=== PATIENT | male | born 1945 | race Two or more races ===

== ENCOUNTER 2024-03-13 08:41 | Emergency (ER) | payer BC, OTHER ==
[~2024-03-13] VITALS: Ht 182.9 cm; Wt 100.0 kg
[~2024-03-13 08:41] MED LIST: CARV3.1240 PO; DOXA2TAB PO; ENAL1TAB46 PO; ERGO2000 PO; LEVO25TA6 PO; METF-372 PO; MONT-8 PO
--- NOTE | 2024-03-13 09:10 | ED.PDOC ---
CPR-HPI HPI Comments 79-year-old male with unknown PMHx brought in by EMS s/p CPR with ROSC. Patient was found unresponsive in his vehicle by after arriving home around 0817. Bystander CPR was initiated by family. EMS arrival at 0824. ROSC was obtained at 0835 per EMS after 2 rounds of CPR and epi with 1 shock. Patient arrived blinking and moving extremities. 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 Allergies: Coded Allergies: UNOBTAINABLE (Unverified , 03/13/24) S/P CPR Home Meds Active Scripts Metformin Hydrochloride (Metformin Hcl) 1,000 Mg Tab, 1 TAB PO BID, #60 TAB Prov:OMID DE LA FUENTE MD 07/19/18 Reported Medications Carvedilol (Carvedilol) 3.125 Mg Tab, 1 TAB PO BID, TAB 07/19/18 Ergocalciferol (VITAMIN D2) 2,000 Unit Tab, 66172 UNIT PO, TAB 07/19/18 Montelukast Sodium (MONTELUKAST SODIUM) 10 Mg Tab, 1 TAB PO DAILY, TAB 07/19/18 Enalapril Maleate (VASOTEC TABLET) 10 Mg Tb, 1 TAB PO DAILY, TAB 07/19/18 Levothyroxine Sodium (Levothyroxine Sodium) 25 Mcg Tab, 0.5 TAB PO, TAB 07/19/18 Doxazosin Mesylate (Doxazosin) 2 Mg Tab, 2 MG PO BID, TAB 07/19/18 Information Source: Emergency Med Personnel Mode of Arrival: EMS Timing: Minutes Duration: Down time prior EMS: (7 minutes) Onset: Witnessed Available Hx: Unknown Inital rhythm: V-fib Treatment: CPR, Defibrillation, Epinephrine Response: Sustained return of pulse Associated signs and symptoms: Unknown Past Medical History PAST MEDICAL HISTORY: DM, High Lipids, HTN Surgical History: PTCA Family History Family History: Unknown Social History Smoker: Non-Smoker Alcohol: Denies ETOH Use Drugs: Denies Drug Use Constitutional: denies: chills, diaphoresis, fatigue, fever, malaise, sweats, weakness, others EENTM: denies: blurred vision, double vision, ear bleeding, ear discharge, ear drainage, ear pain, ear ringing, eye pain, eye redness, hearing loss, mouth pain, mouth swelling, nasal discharge, nose bleeding, nose congestion, nose pain, photophobia, tearing, throat pain, throat swelling, voice changes, others Respiratory: denies: cough, hemoptysis, orthopnea, SOB at rest, shortness of breath, SOB with excertion, stridor, wheezing, others Cardiovascular: denies: chest pain, dizzy spells, diaphoresis, Dyspnea on exertion, edema, irregular heart beat, left arm pain, lightheadedness, palpitations, PND, syncope, others Gastrointestinal: denies: abdomen distended, abdominal pain, blood streaked bowels, constipated, diarrhea, dysphagia, difficulty swallowing, hematemesis, melena, nausea, poor appetite, poor fluid intake, rectal bleeding, rectal pain, vomiting, others Genitourinary: denies: burning, dysuria, flank pain, frequency, hematuria, incontinence, penile discharge, penile sore, pain, testicle pain, testicle swelling, urgency, others Neurological: denies: dizziness, fainting, headache, left sided numbness, left sided weakness, numbness, paresthesia, pre-existing deficit, right sided numbness, right sided weakness, seizure, speech problems, tingling, tremors, weakness, others Musculoskeletal: denies: back pain, gout, joint pain, joint swelling, muscle pain, muscle stiffness, neck pain, others Integumetry: denies: bruises, change in color, change in hair/nails, dryness, laceration, lesions, lumps, rash, wounds, others Allergic/Immunocompromised: denies: Difficulty Healing, Frequent Infections, Hives, Itching, others Hematologic/Lymphatic: denies: anemia, blood clots, easy bleeding, easy bruising, swollen glands, others Endocrine: denies: excessive hunger, excessive sweating, excessive thirst, excessive urination, flushing, intolerance to cold, intolerance to heat, unexplained weight gain, unexplained weight loss, others Psychiatric: denies: anxiety, bipolar disorder, depression, hopeless, panic disorder, schizophrenia, sleepless, suicidal, others Unable to Obtain due to: Medical Urgency All Other Systems: Reviewed and Negative Physical Exam General Appearance: Severe Distress HEENT: NOT DONE Neck: NOT DONE Respiratory: NOT DONE Cardiovascular: NOT DONE Breast Exam: Deferred Gastrointestinal: NOT DONE Genitalia: Deferred Pelvic: Deferred Rectal: Deferred Extremities: NOT DONE Neurologic: NOT DONE Cerebellar Function: NOT DONE Reflexes: NOT DONE Skin: NOT DONE Lymphatic: No Adenopathy Was a procedure done? Was a procedure done?: Yes Sedation Sedation?: Yes Informed consent obtained: No Sedation start time: 08:44 Sedation end time: 08:45 Sedation total time: 1 minute Intubation Indication: Respiratory Insufficiency Prep: Preoxygenation Pretreated with: Sedation Medicated with: Other (20mg Etomidate; 100mg Rocuronium) Intubation Approach: Orotracheal Intubation size: cm (24) Informed consent obtained: No Risks/benefits/alt described: No Notes S/P Cardiac Arrest Differential Dx CPR Differential Diagnosis: Cardiopulmonary arrest, Cardiogenic shock, Dysrhythmia, Electrolyte disorder, Myocardial Infarction, Respiratory Failure X-Ray, Labs, Meds, VS Vital Signs Date Time Temp Pulse Resp B/P (MAP) Pulse Ox O2 Delivery O2 Flow Rate FiO2 03/13/24 10:02 94 03/13/24 10:00 90 16 178/86 (116) 100 03/13/24 10:00 94 16 178/86 (116) 9 50 03/13/24 09:55 176/90 03/13/24 09:47 69/44 03/13/24 09:45 85 16 169/88 (115) 100 03/13/24 09:30 65 16 135/68 (90) 100 03/13/24 09:15 72 16 148/77 (100) 100 03/13/24 09:13 147/83 03/13/24 09:00 84 16 105/59 (74) 98 03/13/24 08:50 55 16 79/43 (55) 98 100 03/13/24 08:45 98.4 75 15 105/51 (69) 98 98.4 03/13/24 08:44 73 03/13/24 08:41 98.4 110 14 122/71 (88) 93 Lab Test 03/13/24 10:00 03/13/24 09:49 03/13/24 08:50 03/13/24 08:45 Range/Units Troponin I High Sensitivity 97 *H 9 </=54 ng/L Blood Gas Specimen Type Arterial Blood Gas Sample Site Right radial Blood Gas Patient Temperature 37.0 Arterial Blood Date Drawn [id number] Arterial Blood pH 7.327 L 7.350-7.450 Arterial Blood Partial Pressure CO2 37.9 35.0-48.0 mmHg Arterial Blood Partial Pressure O2 318.2 *H 83.0-108.0 mmHg Arterial Blood HCO3 19.4 L 21.0-28.0 mmol/L Arterial Blood Oxygen Saturation 99.3 H 94.0-98.0 % Arterial Blood Base Excess -5.9 L -2.0-3.0 mmol/L Arterial Blood Oxyhemoglobin 98.6 H 94.0-98.0 % Arterial Blood Carboxyhemoglobin 0.2 L 0.5-1.5 % Arterial Blood Methemoglobin 0.5 0.0-1.5 % Michael Test Modified Blood Gas Total Hemoglobin 15.80 13.5-17.5 g/dL Blood Gas Set Respiration Rate 16.0 Blood Gas Modality Vent - ac FiO2 % 100.0 Blood Gas Tidal Volume 500.0 Blood Gas PEEP or CPAP 8.0 Blood Gas Critical Value Read Back Yes Blood Gas Notified Whom Dr castillo Blood Gas Notified Time [id number] Blood Gas Notified By Recycler brigid duke Urine Color Pending Urine Clarity Pending Urine pH Pending Urine Specific [place] Pending Urine Protein Pending Urine Ketones Pending Urine Blood Pending Urine Nitrite Pending Urine Bilirubin Pending Urine Urobilinogen Pending Urine Leukocyte Esterase Pending Urine RBC Pending Urine WBC Pending Urine Squamous Epithelial Cells Pending Urine Bacteria Pending Urine Glucose Pending White Blood Count 11.0 H 4.4-10.8 10^3/uL Red Blood Count 4.57 4.5-5.90 10^6/uL Hemoglobin 14.8 13.5-17.5 g/dL Hematocrit 44.3 41.0-53.0 % Mean Corpuscular Volume 96.9 80.0-100.0 fL Mean Corpuscular Hemoglobin 32.4 H 28.0-32.0 pg Mean Corpuscular Hemoglobin Concent 33.4 32.0-36.0 g/dL Red Cell Distribution Width 14.3 11.8-14.3 % Platelet Count 179 140-450 10^3/uL Mean Platelet Volume 7.9 6.9-10.8 fL Neutrophils (%) (Auto) 52.5 37.0-80.0 % Lymphocytes (%) (Auto) 42.1 10.0-50.0 % Monocytes (%) (Auto) 3.8 0.0-12.0 % Eosinophils (%) (Auto) 1.2 0.0-7.0 % Basophils (%) (Auto) 0.4 0.0-2.0 % Neutrophils # (Auto) 5.8 1.6-8.6 10 ^3/uL Lymphocytes # (Auto) 4.7 0.4-5.4 10 ^3/uL Monocytes # (Auto) 0.4 0-1.3 10 ^3/uL Eosinophils # (Auto) 0.1 0-0.8 10 ^3/uL Basophils # (Auto) 0 0-0.2 10 ^3/uL Nucleated Red Blood Cells 0.1 % Sodium Level 140 136-145 mmol/L Potassium Level 4.0 3.5-5.1 mmol/L Chloride Level 107 98-107 mmol/L Carbon Dioxide Level 22 20-31 mmol/L Anion Gap 11 5-15 Blood Urea Nitrogen 18 9-23 mg/dL Creatinine 1.16 0.700-1.30 mg/dL Glomerular Filtration Rate Calc 64 >90 mL/min BUN/Creatinine Ratio 15.5 10.0-20.0 Serum Glucose 189 H 74-106 mg/dL Calcium Level 9.1 8.7-10.4 mg/dL Total Bilirubin 1.1 H 0.2-1.0 mg/dL Aspartate Amino Transferase (AST) 161 H 13-40 U/L Alanine Aminotransferase (ALT) 105 H 7-40 U/L Alkaline Phosphatase 127 H 46-116 U/L Total Protein 6.3 5.7-8.2 g/dL Albumin 4.0 3.2-4.8 g/dL Current Medications Medications (Trade) Dose Ordered Sig/Rios Route Start Time Stop Time Status Last Admin Etomidate 20 mg ONCE ONCE IV 03/13/24 09:15 03/13/24 09:16 DC 03/13/24 09:12 Rocuronium [place] 100 mg ONCE ONCE IV 03/13/24 09:15 03/13/24 09:16 DC 03/13/24 09:13 Midazolam HCl 50 ml @ 1 mls/hr Q24H IV 03/13/24 09:15 03/13/24 09:55 Norepinephrine Bitartrate 250 ml @ 3.75 mls/hr Q24H IV 03/13/24 09:15 03/13/24 09:47 Time of 1ST Reevaluation: 09:10 Reevaluation 1ST: Unchanged Patient Education/Counseling: Pt Unresponsive Family Education/Counseling: No Family Present Departure 1 Departure Time of Disposition: 11:10 (Patient's presented after cardiac arrest. Patient was intubated central line placed started on pressors. We will admit patient to the ICU for further management.) Impression: Primary Impression: Cardiac arrest Additional Impression: Hypotension Qualified Codes: I95.9 - Hypotension, unspecified Disposition: ADMITTED INPATIENT Admit to: ICU Condition: Critical Critical Care Note Critical Care Time?: Yes Critical care comment: Authorized and Performed by: Charleen Shipley MD Total critical care time: Approximately 119 minutes Due to a high probability of clinically significant, life threatening deterioration, the patient required my highest level of preparedness to intervene emergently and I personally spent this critical care time directly and personally managing the patient. This critical care time included obtaining a history; examining the patient; pulse oximetry; ordering and review of studies; arranging urgent treatment with development of a management plan; evaluation of patient's response to treatment; frequent reassessment; and, discussions with other providers. This critical care time was performed to assess and manage the high probability of imminent, life-threatening deterioration that could result in multi-organ failure. It was exclusive of separately billable procedures and treating other patients and teaching time. Please see my other sections and the rest of the note for further information on patient assessment and treatment. Heart Score Heart Score: Heart Score Response (Comments) Value History N/A 0 EKG N/A 0 Age N/A 0 Risk Factors N/A 0 Troponin N/A 0 Total 0 Stability Stability form required: No I personally scribed for CHARLEEN SHIPLEY MD ([email or web address]) on 03/13/24 at 09:10. Electronically submitted by Matthew Villagran ([email or web address]). CHARLEEN SHIPLEY MD Mar 13, 2024 09:10
[2024-03-13] MEDS: ETOMIDATE (2MG/ML) 20ML VIAL IV ONE (09:12)
[2024-03-13] MEDS: ROCURONIUM 10MG/ML 10ML VIAL IV ONE (09:13)
[2024-03-13 09:32] LABS: Basophils # (auto) 0 10 ^3/uL (0-0.2); Basophils % (auto) 0.4 % (0.0-2.0); Eosinophils # (auto) 0.1 10 ^3/uL (0-0.8); Eosinophils % (auto) 1.2 % (0.0-7.0); Hematocrit 44.3 % (41.0-53.0); Hemoglobin 14.8 g/dL (13.5-17.5); Lymphocytes # (auto) 4.7 10 ^3/uL (0.4-5.4); Lymphocytes % (auto) 42.1 % (10.0-50.0); Mean Corpuscular Hemoglobin 32.4 pg (28.0-32.0); Mean Corpuscular Hgb Conc. 33.4 g/dL (32.0-36.0); Mean Corpuscular Volume 96.9 fL (80.0-100.0); Monocytes # (auto) 0.4 10 ^3/uL (0-1.3); Monocytes % (auto) 3.8 % (0.0-12.0); Neutrophils # (auto) 5.8 10 ^3/uL (1.6-8.6); Neutrophils % (auto) 52.5 % (37.0-80.0); Nucleated Red Blood Cells % 0.1 %; Platelet Count (auto) 179 10^3/uL (140-450); Red Blood Cells 4.57 10^6/uL (4.5-5.90); Red Cell Distribution Width 14.3 % (11.8-14.3)
[2024-03-13 09:39] LABS: Urine Bacteria None Seen /hpf (None Seen)
[2024-03-13] MEDS: NOREPINEPHRINE 8 MG/250ML KIT 250 ML IV SCH (09:47)
[2024-03-13 09:50] LABS: Alanine Aminotransferase 105 U/L (7-40); Alkaline Phosphatase 127 U/L (46-116); Anion Gap 11 (5-15); Aspartate Aminotransferase 161 U/L (13-40); BUN/Creatinine Ratio 15.5 (10.0-20.0); Bilirubin, Total 1.1 mg/dL (0.2-1.0); Blood Urea Nitrogen 18 mg/dL (9-23); Calcium 9.1 mg/dL (8.7-10.4); Carbon Dioxide 22 mmol/L (20-31); Chloride 107 mmol/L (98-107); Glucose 189 mg/dL (74-106); Sodium 140 mmol/L (136-145); Total Protein 6.3 g/dL (5.7-8.2)
[2024-03-13 09:55] LABS: Base Excess -5.9 mmol/L (-2.0-3.0)
[2024-03-13] MEDS: MIDAZOLAM DRIP 50 mg/50mL 50 ML IV SCH (09:55)
--- NOTE | 2024-03-13 09:55 | DVH ---
CHEST RADIOGRAPH Indication:S/P ETT,NGT/OGT,AND CENTRAL LINE PLACEMENT Technique: Single frontal view of the chest was obtained COMPARISON: None FINDINGS: Lines and Tubes: Tube and enteric catheter in satisfactory position. Right central venous catheter in satisfactory position overlying the superior vena cava. Lungs: Hazy right upper lobe airspace opacities. Pleura: No effusion. No pneumothorax. Cardiomediastinal contours: Unremarkable Bones: Unremarkable IMPRESSION: Lines and tubes in satisfactory position.
[2024-03-13] MEDS: IOHEXOL 300 MG/ML 100ML BOTTLE IJ ONE (10:31)
--- NOTE | 2024-03-13 11:15 | DVH ---
EXAM: CT HEAD WITHOUT CONTRAST INDICATION: post arrest TECHNIQUE: CT of the head without intravenous contrast. Radiation dose : Head: CT Dose: CTDI volume is 78.01 mGy. Dose-length product is 2982.81 mGy*cm The dose indicators for CT are the volume computed tomography (CT) dose index (CTDIvol) and the dose length product (DLP), and are measured in units of mGy and mGy-cm, respectively. These indicators are not patient dose, but values generated from the CT scanner acquisition factors. The report includes radiation exposure data for exposures received during this examination. COMPARISON: None FINDINGS: There is no evidence of acute intracranial hemorrhage, extra-axial collection, mass effect, midline s hift, herniation or hydrocephalus. The ventricles, sulci and cisterns are age appropriate. The chandler-white differentiation is intact. Patchy periventricular and subcortical white matter hypoattenuation is nonspecific but may be related to small vessel ischemic disease. There is mild opacification of the ethmoid and sphenoid sinuses. The surrounding soft tissues and osseous structures are unremarkable. An endotracheal tube is partial ly imaged IMPRESSION: 1. No acute intracranial abnormality. Radiation optimization: All CT scans at this facility use at least one of these dose optimization ama hniques: Automated exposure control mA and/or kV adjustment per patient size (includes targeted exams where dose is matched to clinical indication) or iterative reconstruction. HS:Y
[2024-03-13 11:19] LABS: Urine Blood 2+ /uL (Negative); Urine Clarity Turbid (Clear); Urine Color Yellow (Yellow); Urine Mucus FEW (None Seen); Urine Protein, UAD 3+ (Negative); Urine Specific Gravity 1.025 (1.001-1.035); Urine Urobilinogen Normal (Negative); Urine WBC 24 /hpf (0 - 3); Urine pH 5.5 (5.0-9.0)
--- NOTE | 2024-03-13 11:27 | DVH ---
Exam: CT CT CHEST/AB/PL W CON- IV ONLY History: post arrest Comparison Study: None available at time of dictation. Technique: Multidetector CT of the chest, abdomen and pelvis was performed from lower neck to pubic s ymphysis. 100 mL of Omnipaque 300 intravenous contrast was administered during this examination. Johnny nal and sagittal reformatted images are submitted. Radiation Dose Information: CT Dose: CTDI volume is mGy. Dose-length product is mGy*cm Findings: Support lines and tubes: Endotracheal tube terminates above the denny. Enteric tube terminates in th e stomach. Lower neck: The thyroid is unremarkable. Lungs: Bilateral lower lobe consolidation. No suspicious pulmonary nodule. Pleura: No pneumothorax or pleural effusion. Heart/Vascular Structures: The heart is normal in size. There is thoracic aortic dissection beginning distal to the takeoff of the left common carotid artery and extending into the proximal abdominal ao rta, to just above the renal artery origins. Punctate hyperattenuating foci within the false lumen ma y reflect active hemorrhage. Normal caliber main pulmonary artery. Lymph Nodes: No adenopathy Liver: The liver is normal in size. No focal lesions. Normal hepatic vascular enhancement. Gallbladder and Biliary Tree: Gallbladder is unremarkable. No biliary ductal dilatation. Spleen: Unremarkable Pancreas: The pancreas is normal in appearance without focal lesions or abnormal enhancement. Adrenal Glands: Unremarkable Kidneys: Kidneys demonstrate normal symmetric enhancement without focal lesions, calculi or hydroneph rosis. Urinary bladder: There is a Cho catheter present. There is air in the urinary bladder which may be related to presence of the Cho catheter. Bowel: The stomach is grossly normal in appearance. Small bowel and colon are normal in caliber and d istribution. Sigmoid diverticulosis without diverticulitis. Rectal catheter noted. The appendix is no t visualized; however, no secondary findings of acute appendicitis identified. Intraperitoneal cavity: No pneumoperitoneum or ascites. Lymphadenopathy: No mesenteric, retroperitoneal or periportal lymphadenopathy. Abdominal Wall and Mesentery: Unremarkable. Vasculature: The visualized abdominal aorta is normal in size and caliber. Abdominal and pelvic vess els demonstrate normal enhancement. Atherosclerotic calcifications noted in the abdominal aorta and i ts branches Pelvic Organs: Enlarged prostate. Musculoskeletal: There is an acute left 3rd and 4th rib fracture. Soft tissues: Bilateral fat containing inguinal hernias. IMPRESSION: 1. Type B thoracic aortic dissection extending into the proximal abdominal aorta and terminating abo ve the renal artery origins. Small radiodense foci noted within the false lumen of the descending tho racic aortic dissection worrisome for active hemorrhage. 2. Bilateral lower lobe opacities which may reflect atelectasis or consolidation including aspiration . 3. Air in the urinary bladder may be related to Cho catheter infection is not excluded. 4. Left 3rd and 4th acute rib fractures. 5. Sigmoid diverticulosis without acute diverticulitis. All CT scans at this medical facility are performed using dose modulation techniques as appropriate t o a performed exam including the following:Automated exposure control was utilized; adjustment of the MA and/or KV according to patient size; and use of iterative reconstruction technique.
[2024-03-13 11:32] VITALS: BP 178/86; PULSE 94; RESP 16; O2SAT 94
[2024-03-13] MEDS ORDERED: ESMOLOL HCL-NS 10MG/ML 250 ML IV SCH (11:45)
[2024-03-13] MEDS: ESMOLOL HCL-NS 10MG/ML 250 ML IV SCH (12:06)
[2024-03-13 12:56] VITALS: PULSE 74; RESP 16; O2SAT 96
[2024-03-13 13:09] VITALS: PULSE 61; RESP 16; TEMP 98.2; O2SAT 100
[2024-03-13 13:30] VITALS: BP 106/56
--- NOTE | 2024-03-13 18:45 | ECG ---
[facility] Test Date: 2024-03-13 Test Time: 10:00:41 Pat Name: ROSEANN MAYERS Department: ED Room: Gender: M Marketing Writer: SAGAR : 1945 Requested By: CHARLEEN WRIGHT Order Number: [id number] Reading MD: Augustin Anders Measurements Intervals [place] Rate: 94 P: 76 MA: 157 QRS: 106 QRSD: 121 T: -1 QT: 354 QTc: 443 Interpretive Statements Sinus rhythm Nonspecific intraventricular conduction delay Borderline ST depression, anterolateral leads Baseline wander in lead(s) I,II,aVR Electronically Signed On 03-14-2024 13:13:51 PDT by Augustin Anders Please click the below link to view image of tracing.
--- NOTE | 2024-03-13 18:45 | ECG ---
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
== END 2024-03-13 11:39 | disposition short-term general hospital (02) ==
LOC: EDBD 08:41 → ER 08:41
DX: I46.9 Cardiac arrest, cause unspecified (principal); I95.9 Hypotension, unspecified; E11.9 Type 2 diabetes mellitus without complications; E78.5 Hyperlipidemia, unspecified; Z98.890 Other specified postprocedural states
CPT/HCPCS: 31500; 36415; 36556; 36600; 70450; 71045; 71260; 74177; 80053; 81001; 82805; 84484; 85025; 87070; 87086; 87205; 92950; 93005; 99291; 99292; J2250; Q9967; J3490

== ENCOUNTER 2024-04-15 07:26 | Emergency (ER) | payer OTHER ==
[~2024-04-15] VITALS: Ht 167.6 cm; Wt 77.0 kg
--- NOTE | 2024-04-15 07:48 | ED.PDOC ---
General HPI Comments 79-year-old male presents with a chief complaint of inability to void x onset 2100 last night. Patient states that the last time he urinated was 2100 last night, and has not been able to go since. Patient denies any flank pain, fever, nausea, vomiting, diarrhea, or abdominal pain. Patient recently had open heart surgery. No other symptoms or modifying factors present at this time. Chief Complaint: Urinary Time Seen by MD: 07:39 Primary Care Provider: UNKNOWN Reviewed notes: Medications, Allergies Information Source: Patient Mode of Arrival: Ambulatory Severity: Moderate Inability to void: Complete Timing: Hours Duration: Since onset Has not urinated for: Hours Prehospital treatment: None Onset: Spontaneous Symptoms: Inability to void History of: None Past Medical History PAST MEDICAL HISTORY: DM, High Lipids, HTN Surgical History: PTCA Family History Family History: Unknown Social History Smoker: Non-Smoker Alcohol: Denies ETOH Use Drugs: Denies Drug Use Constitutional: denies: chills, diaphoresis, fatigue, fever, malaise, sweats, weakness, others EENTM: denies: blurred vision, double vision, ear bleeding, ear discharge, ear drainage, ear pain, ear ringing, eye pain, eye redness, hearing loss, mouth pain, mouth swelling, nasal discharge, nose bleeding, nose congestion, nose pain, photophobia, tearing, throat pain, throat swelling, voice changes, others Respiratory: denies: cough, hemoptysis, orthopnea, SOB at rest, shortness of breath, SOB with excertion, stridor, wheezing, others Cardiovascular: denies: chest pain, dizzy spells, diaphoresis, Dyspnea on exertion, edema, irregular heart beat, left arm pain, lightheadedness, palpita tions, PND, syncope, others Gastrointestinal: denies: abdomen distended, abdominal pain, blood streaked shwetha wels, constipated, diarrhea, dysphagia, difficulty swallowing, hematemesis, melena, nausea, poor appetite, poor fluid intake, rectal bleeding, rectal pain, vomiting, others Genitourinary: reports: others (INABILITY TO VOID); denies: burning, dysuria, flank pain, frequency, hematuria, incontinence, penile discharge, penile sore, pain, testicle pain, testicle swelling, urgency Neurological: denies: dizziness, fainting, headache, left sided numbness, left sided weakness, numbness, paresthesia, pre-existing deficit, right sided numbness, right sided weakness, seizure, speech problems, tingling, tremors, weakness, others Musculoskeletal: denies: back pain, gout, joint pain, joint swelling, muscle pain, muscle stiffness, neck pain, others Integumetry: denies: bruises, change in color, change in hair/nails, dryness, laceration, lesions, lumps, rash, wounds, others Allergic/Immunocompromised: denies: Difficulty Healing, Frequent Infections, Hives, Itching, others Hematologic/Lymphatic: denies: anemia, blood clots, easy bleeding, easy bruising, swollen glands, others Endocrine: denies: excessive hunger, excessive sweating, excessive thirst, excessive urination, flushing, intolerance to cold, intolerance to heat, unexplained weight gain, unexplained weight loss, others Psychiatric: denies: anxiety, bipolar disorder, depression, hopeless, panic disorder, schizophrenia, sleepless, suicidal, others All Other Systems: Reviewed and Negative Physical Exam General Appearance: No Apparent Distress, Normal HEENT: Normal ENT Inspection, Pharynx Normal, TMs Normal Neck: Full Range of Motion, Non-Tender, Normal, Normal Inspection Respiratory: Chest Non-Tender, Lungs Clear, No Accessory Muscle Use, No Respiratory Distress, Normal Breath Sounds Cardiovascular: No Edema, No JVD, No Murmur, No Gallop, Normal Peripheral Pulses, Regular Rate/Rhythm Breast Exam: Deferred Gastrointestinal: No Organomegaly, Non Tender, No Pulsatile Mass, Normal Bowel Sounds, Soft Genitalia: Deferred Pelvic: Deferred Rectal: Deferred Extremities: No calf tenderness, Normal capillary refill, Normal inspection, Normal range of motion, Non-tender, No pedal edema Musculoskeletal : Apperance: Normal Neurologic: Alert, environmental compliance inspector II-XII nml as Tested, No Motor Deficits, Normal Affect, Normal Mood, No Sensory Deficits Cerebellar Function: Normal Reflexes: Normal Skin: Dry, Normal Color, Warm Lymphatic: No Adenopathy Was a procedure done? Was a procedure done?: No Differential Diagnosis Kidney stone (Female): N/A Kidney stone (Male): N/A Penile/Scrotal: N/A Urinary Problem (Male): Urinary Retention Urinary Problem (Female): N/A X-Ray, Labs, Meds, VS Vital Signs Date Time Temp Pulse Resp B/P (MAP) Pulse Ox O2 Delivery O2 Flow Rate FiO2 04/15/24 07:39 115 Time of 1ST Reevaluation: 08:09 Reevaluation 1ST: Unchanged Patient Education/Counseling: Diagnosis, Treatment, Prognosis Family Education/Counseling: Diagnosis, Treatment, Prognosis Departure 1 Departure Time of Disposition: 08:31 (Patient's catheter was clogged. Replaced patient's catheter had 400 mL of output. Your it was mostly clear with occasional blood clots. We will discharge patient home with outpatient follow up) Impression: Primary Impression: Acute urinary retention Disposition: 01 HOME / SELF CARE / HOMELESS Condition: Stable Additional Instructions: Your catheter was exchanged in the ER today. It is important to follow up with the urologist and regular doctors within 1 week. If your symptoms worsen or you have any other concerns please return to the emergency room. Discharged With: Self Critical Care Note Critical Care Time?: No Stability Stability form required: No I personally scribed for CHARLEEN WRIGHT MD ([email or web address]) on 04/15/24 at 07:48. Electronically submitted by Matthew Villagran [email or web address]). CHARLEEN WRIGHT MD Apr 15, 2024 07:48
--- NOTE | 2024-04-15 07:55 | ECG ---
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
[2024-04-15 08:28] VITALS: BP 137/74; PULSE 130; RESP 16; O2SAT 98
[2024-04-15 18:02] LABS: Urine Bacteria None Seen /hpf (None Seen)
[2024-04-15 18:30] LABS: Urine Blood 2+ /uL (Negative); Urine Budding Yeast MANY /hpf (None Seen); Urine Clarity Ex.Turbid (Clear); Urine Color Brown (Yellow); Urine Mucus FEW (None Seen); Urine Protein, UAD 2+ (Negative); Urine Specific Gravity 1.013 (1.001-1.035); Urine Urobilinogen Normal (Negative); Urine WBC 3849 /hpf (0 - 3); Urine WBC Clumps PRESENT /hpf (None Seen); Urine pH 5.5 (5.0-9.0)
== END 2024-04-15 08:54 | disposition left against medical advice (07) ==
LOC: EDUNIT# 07:26 → ER 07:26
DX: R33.9 Retention of urine, unspecified (principal); E11.9 Type 2 diabetes mellitus without complications; I10 Essential (primary) hypertension
CPT/HCPCS: 51702; 81001; 93005